=== PATIENT | male | born 1945 | race Caucasian/White ===

== ENCOUNTER 2021-06-22 02:28 | Inpatient (IN) | payer OTHER ==
[~2021-06-22] VITALS: Ht 185.4 cm; Wt 113.5 kg
[2021-06-22 21:27] LABS: HEMOGLOBIN 14.8 gm/dl (14.0-17.5); RED BLOOD COUNT 4.58 M/UL (4.20-5.50); WHITE BLOOD COUNT 12.7 K/UL (4.5-11.0)
--- NOTE | 2021-06-22 21:49 | NUR ---
PT WAS TRANSFERED TO [facility]. PT HAS BEEN IN [facility] RVR SINCE START OF SHIFT WITH OXYGEN SATS IN THE 70"S TO 80'S. AWARE RESPIRATORY ON BOARD
--- NOTE | 2021-06-22 23:20 | NUR ---
SECURITY CALLED TO LOCK UP SEVERAL ENVELOPES OF MONEY LOCATED IN PATIENT'S PANTS POCKET. PATIENT WILL NOT ALLOW SECURITY TO LOCK-UP THE MONEY, WILL NOT ALLOW STAFF TO HANDLE, COUNT, OR PUT MONEY AWAY IN ANY FORM. REQUESTS THAT PANTS BE KEPT WITHIN REACH SO HE CAN "KEEP AN EYE ON THEM".
--- NOTE | 2021-06-23 04:11 | NUR ---
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
[2021-06-23 07:02] LABS: HEMOGLOBIN 13.2 gm/dl (14.0-17.5); RED BLOOD COUNT 4.13 M/UL (4.20-5.50); WHITE BLOOD COUNT 13.5 K/UL (4.5-11.0)
--- NOTE | 2021-06-23 07:24 | NUR ---
0525 FOUR PHONE CALLS ATTEMPTED, TWO EACH, TO NUMBERS LISTED FOR PATIENT'S DAUGHTERS PROVIDED BY MED/SURG TO ASK ABOUT WHETHER IT WOULD BE OKAY TO INTUBATE PATIENT IF IT CAME TO IT. 0537 DR MOORE BY TO SEE PATIENT. SAYS PATIENT'S CONDITION DOESN'T SEEM MUCH DIFFERENT TO HIM FROM EARLIER, ORDER GIVEN FOR 2 MG IV MORPHINE AND TO START ON LOW-DOSE CARDIZEM DRIP. 0.5 MG IVP ATIVAN COULD BE GIVEN IF PATIENT IS STILL AGITATED AFTERWARDS. 0543 2 MG IVP MORPHINE GIVEN, PATIENT'S HEART RATE IMMEDIATELY DROPPED TO 68 FROM 120'S. HARD TIME PICKING UP PATIENT'S OXYGEN SATURATION LEVELS, SO A NEW SENSOR WAS REQUESTED AND PLACED. 0545 PATIENT GOES ASYSTOLE, CODE BLUE CALLED, HIGH QUALITY CPR INITIATED IMMEDIATELY. CODE TEAM ARRIVED. 604 BETWEEN 550 AND 604, NUMBERS FOR DAUGHTERS AND THE EMERGENCY CONTACT NUMBER WERE CALLED A TOTAL OF 20 TIMES. NO ANSWER ON ANY LINE.
[2021-06-23 07:40] LABS: BUN/CREATININE RATIO 17 (0-10)
--- NOTE | 2021-06-23 13:55 | NUR ---
attempted to call both Sloan (son) and Ary to notify them of the home picking up family member. no answer left messages was able to contact suzanne, she was notified of slate picker with the home
== END 2021-06-23 07:05 | disposition expired | DRG 208 ==
LOC: 2 EAST 18:35 → MED SURG 4 18:35 → PROG CARE 21:38 → 2 EAST 06-23 06:50
PROVIDERS: Internal Medicine; ADMIT Internal Medicine
PROC: 5A09357 Assistance with Respiratory Ventilation, Less than 24 Consecutive Hours, Continuous Positive Airway Pressure (ICD-10-PCS; 2021-06-22)
PROC: 3E0333Z Introduction of Anti-inflammatory into Peripheral Vein, Percutaneous Approach (ICD-10-PCS; principal; 2021-06-23)
PROC: 5A1935Z Respiratory Ventilation, Less than 24 Consecutive Hours (ICD-10-PCS; 2021-06-23)
PROC: 8E0ZXY6 Isolation (ICD-10-PCS; 2021-06-23)
PROC: 0BH17EZ Insertion of Endotracheal Airway into Trachea, Via Natural or Artificial Opening (ICD-10-PCS; 2021-06-23)
PROC: 5A12012 Performance of Cardiac Output, Single, Manual (ICD-10-PCS; 2021-06-23)
DX: J96.01 Acute respiratory failure with hypoxia (principal); U07.1 COVID-19; J12.82 Pneumonia due to coronavirus disease 2019; J15.8 Pneumonia due to other specified bacteria; I21.4 Non-ST elevation (NSTEMI) myocardial infarction; N17.9 Acute kidney failure, unspecified; E87.2 Acidosis; M62.82 Rhabdomyolysis; I47.2 Ventricular tachycardia; G93.49 Other encephalopathy; I46.8 Cardiac arrest due to other underlying condition; E78.5 Hyperlipidemia, unspecified; W18.30XA Fall on same level, unspecified, initial encounter; E03.9 Hypothyroidism, unspecified; N40.0 Benign prostatic hyperplasia without lower urinary tract symptoms; K59.00 Constipation, unspecified; I48.91 Unspecified atrial fibrillation; Z79.01 Long term (current) use of anticoagulants; Z88.0 Allergy status to penicillin
CPT/HCPCS: 31500; 36415; 36600; 71045; 80053; 82550; 82553; 82728; 82803; 82962; 83605; 83874; 83880; 84439; 84443; 84484; 85025; 85610; 85652; 85730; 86140; 92950; 93005; 94002; 94660; 94664; J0171; J0461; J1100; J1265; J2185; J2270; J3370; J3430; J3475; J7070